=== PATIENT | female | born 1940 | race Caucasian/White ===

== ENCOUNTER 2024-12-19 10:02 | Inpatient (IN) | payer OTHER, MEDICARE ==
[~2024-12-19] VITALS: Ht 172.7 cm; Wt 114.3 kg
--- NOTE | 2024-12-19 10:15 | ED.PDOC ---
Altered Mental Status HPI Comments 84 y.o female with PMHx of COPD, HTN, Dementia, presents to the ED via EMS for an evaluation of altered mental status. EMS reports patient is coming from private residence. Home health nurse called 911 due to patient's lethargic state trying to transfer from bed to wheelchair. Family on scene reported that patient is usually up, ambulatory but noticed today she was unable to assist herself and was hard to arouse. Paramedics reported on scene constricted pupils and stated that patient became combative transferring her from wheelchair to gurney. Per EMS, family was not aware of any medication, drug or etoh ingestion, however mentioned to paramedics that they had Morphine and Lorazepam in the r efrigerator. Patient upon ED arrival is lethargic, opens her eyes to name but immediately closes them. No other information obtained as no family is present. Time Seen by MD: 10:04 Primary Care Provider: ESTELLE Mann Notes: Nurses Notes, Fertilizer Mixer Notes, Medications, Allergies Allergies: Coded Allergies: NO KNOWN ALLERGIES (Unverified , 06/22/14) Information Source: Emergency Med Personnel Mode of Arrival: EMS Severity: Other (Patient is altered and lethargic ) Timing: Hours Duration: Since onset Quality: Decreased Alertness, Change in Behavior Recent: Other History of: Dementia Associated Signs and Symptoms: Other (Patient is lethargic) Past Medical History PAST MEDICAL HISTORY: Arthritis, COPD, Dementia, HTN Surgical History: Denies all surgeries BUCKLE ATTACHING MACHINE OPERATOR History: No Pertinent BUCKLE ATTACHING MACHINE OPERATOR History Family History Family History: Unknown Social History Smoker: Non-Smoker Alcohol: Occasionally Drugs: Unknown Lives In: Home Unable to Obtain due to: Altered Mental Status Physical Exam General Appearance: No Apparent Distress, Obese, Other (lethargic, arousable) HEENT: Other (Pupils constricted, extraocular movements intact, moist mucous membranes, face symmetric) Neck: Full Range of Motion, Non-Tender, Normal Inspection, Supple Respiratory: Decreased Breath Sounds, No Accessory Muscle Use, No Respiratory Distress Cardiovascular: No Edema, No JVD, Regular Rate/Rhythm Breast Exam: Deferred Gastrointestinal: Non Tender, Soft Genitalia: Deferred Pelvic: Deferred Rectal: Deferred Extremities: Normal inspection, Normal range of motion, Non-tender, No pedal edema Neurologic: Other (Somnolent, arousable, minimally verbal, moves all extremities, localizes painful stimulus) Cerebellar Function: NOT DONE Reflexes: NOT DONE Skin: Dry, Normal Color, Warm Lymphatic: NOT DONE EKG EKG : Comments Sinus rhythm, rate 66, OR 201, normal QRS and QTC intervals, borderline left axis deviation, normal QRS, nonspecific T changes. Was a procedure done? Was a procedure done?: No Differential Diagnosis (ALOC) Differential Diagnosis: Dehydration, Hypoglycemia, Encephalopathy, Sepsis, Hypoxemia, Closed Head Injury, CVA, Mass Lesion, SAH, Drug Overdose, ETOH Intoxication, Heart Failure, Other (Pneumonia, among others) X-Ray, Labs, Meds, VS Vital Signs Date Time Temp Pulse Resp B/P (MAP) Pulse Ox O2 Delivery O2 Flow Rate FiO2 12/19/24 12:04 97.5 64 20 105/56 (72) 94 97.5 12/19/24 11:45 18 93 Nasal Cannula* 4 36 12/19/24 10:35 66 12/19/24 10:21 91 Nasal Cannula* 4 36 12/19/24 10:20 Nasal Cannula* 2 28 12/19/24 10:12 97.9 80 16 124/70 (88) 91 97.9 Lab Test 12/19/24 11:20 12/19/24 10:50 12/19/24 10:26 Range/Units Troponin I High Sensitivity 3 L 4 </=34 ng/L Plasma/Serum Blood Alcohol < 3.0 < 3.0 <10 mg/dL Urine Color Yellow Yellow Urine Clarity Clear Clear Urine pH 5.5 5.0-9.0 Urine Specific [place] 1.033 1.001-1.035 Urine Protein Trace H Negative Urine Ketones Negative Negative Urine Blood Negative Negative /uL Urine Nitrite Negative Negative Urine Bilirubin Negative Negative Urine Urobilinogen 2 H Negative mg/dL Urine Leukocyte Esterase Negative Negative /uL Urine RBC 3 0 - 4 /hpf Urine Microscopic WBC 4 0-5 /HPF Urine Squamous Epithelial Cells Few <5 /hpf Urine Bacteria Few H None Seen /hpf Urine Mucus Few None Seen Urine Glucose Normal Normal mg/dL Urine Opiates Screen Pos NEGATIVE Urine Fentanyl Screen Pos NEGATIVE Urine Barbiturates Screen Neg NEGATIVE Urine Phencyclidine Screen Neg NEGATIVE Urine Amphetamines Screen Neg NEGATIVE Urine Benzodiazepines Screen Pos NEGATIVE Urine Cocaine Screen Neg NEGATIVE Urine Cannabinoids Screen Neg NEGATIVE White Blood Count 10.0 4.4-10.8 10^3/uL Red Blood Count 4.74 4.0-5.20 10^6/uL Hemoglobin 14.3 12.2-16.2 g/dL Hematocrit 43.9 36.0-46.0 % Mean Corpuscular Volume 92.7 80.0-100.0 fL Mean Corpuscular Hemoglobin 30.1 28.0-32.0 pg Mean Corpuscular Hemoglobin Concent 32.5 32.0-36.0 g/dL Red Cell Distribution Width 16.3 H 11.8-14.3 % Platelet Count 325 140-450 10^3/uL Mean Platelet Volume 7.8 6.9-10.8 fL Neutrophils (%) (Auto) 70.7 37.0-80.0 % Lymphocytes (%) (Auto) 21.8 10.0-50.0 % Monocytes (%) (Auto) 5.8 0.0-12.0 % Eosinophils (%) (Auto) 1.3 0.0-7.0 % Basophils (%) (Auto) 0.4 0.0-2.0 % Neutrophils # (Auto) 7.1 1.6-8.6 10 ^3/uL Lymphocytes # (Auto) 2.2 0.4-5.4 10 ^3/uL Monocytes # (Auto) 0.6 0-1.3 10 ^3/uL Eosinophils # (Auto) 0.1 0-0.8 10 ^3/uL Basophils # (Auto) 0 0-0.2 10 ^3/uL Nucleated Red Blood Cells 0.0 % Sodium Level 144 136-145 mmol/L Potassium Level 4.0 3.5-5.1 mmol/L Chloride Level 108 H 98-107 mmol/L Carbon Dioxide Level 29 20-31 mmol/L Anion Gap 7 5-15 Blood Urea Nitrogen 23 9-23 mg/dL Creatinine 0.83 0.550-1.02 mg/dL Glomerular Filtration Rate Calc 70 >90 mL/min BUN/Creatinine Ratio 27.7 H 10.0-20.0 Serum Glucose 111 H 74-106 mg/dL Lactic Acid Level 0.6 0.4-2.0 mmol/L Calcium Level 9.3 8.7-10.4 mg/dL Total Bilirubin < 0.2 L 0.2-1.0 mg/dL Aspartate Amino Transferase (AST) 13 13-40 U/L Alanine Aminotransferase (ALT) 15 7-40 U/L Alkaline Phosphatase 97 46-116 U/L Ammonia < 10 L 11-32 umol/L B-Type Natriuretic Peptide 38.07 0-100 pg/mL Total Protein 7.0 5.7-8.2 g/dL Albumin 4.3 3.2-4.8 g/dL Current Medications Medications (Trade) Dose Ordered Sig/Pepito Route Start Time Stop Time Status Last Admin Naloxone HCl (Narcan) 0.4 mg ONCE ONCE IV 12/19/24 10:15 12/19/24 10:16 DC 12/19/24 11:04 Albuterol (Ventolin Medneb) 5 mg ONCE ONCE NEB 12/19/24 11:15 12/19/24 11:16 DC 12/19/24 11:45 Ipratropium [place] (Atrovent Medneb) 0.5 mg ONCE ONCE NEB 12/19/24 11:15 12/19/24 11:16 DC 12/19/24 11:45 Clindamycin Phosphate 50 ml @ 50 mls/hr ONCE ONCE IV 12/19/24 12:00 12/19/24 12:59 DC 12/19/24 13:47 Ceftriaxone Sodium 50 ml @ 100 mls/hr ONCE ONCE IV 12/19/24 12:00 12/19/24 12:39 DC 12/19/24 13:02 Methylprednisolone Sodium Succinate (Solu Medrol) 125 mg ONCE ONCE IV 12/19/24 12:15 12/19/24 12:39 DC 12/19/24 13:02 PROCEDURE(s): CXRP - CHEST PORTABLE REASON: aloc hypoxia ORDER NUMBER(s): [id number], ACCESSION NUMBER(s): [id number] CHEST RADIOGRAPH Indication: aloc hypoxia Technique: Single frontal view of the chest was obtained COMPARISON: None FINDINGS: Lines and Tubes: None Lungs: Diffuse increased interstitial prominence Pleura: No effusion. No pneumothorax. Cardiomediastinal contours: Unremarkable Bones: Unremarkable IMPRESSION: Pulmonary vascular congestion ATED BY: MARCO A KELLY MD X-Ray, Labs, Meds, VS Comment 84-year-old female with a history of COPD, hypertension, dementia, arthritis brought in by EMS from home with altered mental status and hypoxia Vitals remarkable for hypoxia with oxygen saturation 91% on 2 L nasal cannula Exam remarkable for lethargy, constricted pupils, diminished breath sounds Rhythm strip independently interpreted by me: Sinus rhythm, rate 66, no ectopy. Patient refused head CT Chest x-ray IMPRESSION: Pulmonary vascular congestion CBC, CMP, BNP, troponin , UA, alcohol level unremarkable for any abnormality of acute significance, urine drug screen positive for opiates, fentanyl and benzos Patient treated with the following in the ED: Narcan 0.4 mg IV with improvement of mental status. Albuterol 5 mg/Atrovent 0.5 mg nebulized, Solu-Medrol 125 mg IV, Rocephin 1 g IV, clindamycin 900 mg IV On re-evaluation after Narcan, patient was somnolent but more arousable. She was still unable to provide any coherent history, however was able states she was more comfortable now. Plan is to admit the patient for respiratory support and IV antibiotics Time of 1ST Reevaluation: 10:09 Reevaluation 1ST: Unchanged Time of 2ND Reevaluation: 12:10 Reevaluation 2ND: Improved Patient Education/Counseling: Other (Patient is altered ) Family Education/Counseling: No Family Present Departure 1 Departure Time of Disposition: 12:11 Impression: Primary Impression: Toxic encephalopathy Qualified Codes: G92.9 - Unspecified toxic encephalopathy Additional Impressions: Pneumonia Qualified Codes: J18.9 - Pneumonia, unspecified organism Acute hypoxic respiratory failure COPD exacerbation Disposition: 02 SHORT TERM HOSPITAL Admit to: [facility] Condition: Guarded Critical Care Note Critical Care Time?: Yes (45 min-critical care time only) Critical care comment: Critical care time including multiple bedside re-evaluations, review of lab and imaging studies, and discussion of the case with the accepting provider. Patient is high risk for respiratory and/or neurologic decompensation. Stability Stability form required: No Heart Score Heart Score: Heart Score Response (Comments) Value History N/A 0 EKG N/A 0 Age N/A 0 Risk Factors N/A 0 Troponin N/A 0 Total 0 I personally scribed for TANIA HERNANDEZ MD ([email or web address]) on 12/19/24 at 10:15. Electronically submitted by Bozena Reis ([facility]). ATNIA HERNANDEZ MD December 19, 2024 10:15
--- NOTE | 2024-12-19 10:37 | ECG ---
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
[2024-12-19 10:50] LABS: Basophils # (auto) 0 10 ^3/uL (0-0.2); Basophils % (auto) 0.4 % (0.0-2.0); Eosinophils # (auto) 0.1 10 ^3/uL (0-0.8); Eosinophils % (auto) 1.3 % (0.0-7.0); Hematocrit 43.9 % (36.0-46.0); Hemoglobin 14.3 g/dL (12.2-16.2); Lymphocytes # (auto) 2.2 10 ^3/uL (0.4-5.4); Lymphocytes % (auto) 21.8 % (10.0-50.0); Mean Corpuscular Hemoglobin 30.1 pg (28.0-32.0); Mean Corpuscular Hgb Conc. 32.5 g/dL (32.0-36.0); Mean Corpuscular Volume 92.7 fL (80.0-100.0); Monocytes # (auto) 0.6 10 ^3/uL (0-1.3); Monocytes % (auto) 5.8 % (0.0-12.0); Neutrophils # (auto) 7.1 10 ^3/uL (1.6-8.6); Neutrophils % (auto) 70.7 % (37.0-80.0); Platelet Count (auto) 325 10^3/uL (140-450); Red Blood Cells 4.74 10^6/uL (4.0-5.20); Red Cell Distribution Width 16.3 % (11.8-14.3)
[2024-12-19] MEDS: NALOXONE HCL 0.4 MG/ML VIAL IV ONE (11:04)
[2024-12-19 11:05] LABS: Urine Bacteria FEW /hpf (None Seen); Urine Blood Negative /uL (Negative); Urine Clarity Clear (Clear); Urine Color Yellow (Yellow); Urine Mucus FEW (None Seen); Urine Protein, UAD TRACE (Negative); Urine Specific Gravity 1.033 (1.001-1.035); Urine Squamous Epithelial Cell FEW /hpf (<5); Urine Urobilinogen 2 mg/dL (Negative); Urine WBC 4 /HPF (0-5); Urine pH 5.5 (5.0-9.0)
[2024-12-19 11:14] LABS: Alanine Aminotransferase 15 U/L (7-40); Albumin 4.3 g/dL (3.2-4.8); Alkaline Phosphatase 97 U/L (46-116); Anion Gap 7 (5-15); BUN/Creatinine Ratio 27.7 (10.0-20.0); Calcium 9.3 mg/dL (8.7-10.4); Carbon Dioxide 29 mmol/L (20-31); Sodium 144 mmol/L (136-145)
[2024-12-19 11:15] LABS: Aspartate Aminotransferase 13 U/L (13-40); Bilirubin, Total < 0.2 mg/dL (0.2-1.0); Blood Alcohol < 3.0 mg/dL (<10); Blood Urea Nitrogen 23 mg/dL (9-23); Chloride 108 mmol/L (98-107); Glucose 111 mg/dL (74-106)
[2024-12-19 11:16] LABS: Amphetamine Screen, Urine Neg (NEGATIVE); Opiate Scree,Urine Pos (NEGATIVE)
[2024-12-19 11:17] LABS: Barbiturate Scree,Urine Neg (NEGATIVE); Benzodiazephine Screen, Urine Pos (NEGATIVE); Cannabinoid Screen, Urine Neg (NEGATIVE); Cocaine Screen, Urine Neg (NEGATIVE); Phencyclidine Screen, Urine Neg (NEGATIVE)
[2024-12-19] MEDS: ALBUTEROL SULF 2.5 MG/0.5ML(0.5%) NEB SOLN NEB ONE (11:45)
[2024-12-19] MEDS: IPRATROPIUM BROM 0.5 MG/2.5ML INH SOL NEB ONE (11:45)
--- NOTE | 2024-12-19 12:07 | DVH ---
CHEST RADIOGRAPH Indication: aloc hypoxia Technique: Single frontal view of the chest was obtained COMPARISON: None FINDINGS: Lines and Tubes: None Lungs: Diffuse increased interstitial prominence Pleura: No effusion. No pneumothorax. Cardiomediastinal contours: Unremarkable Bones: Unremarkable IMPRESSION: Pulmonary vascular congestion
[2024-12-19] MEDS: methylPREDNISolone SOD SUCC 125 MG/2 ML VL IV ONE (13:02)
[2024-12-19] MEDS: cefTRIAXone 1GM/50ML D5W 50 ML IV ONE (13:02)
[2024-12-19] MEDS: CLINDAMYCIN 900MG IV 50 ML IV ONE (13:47)
--- NOTE | 2024-12-19 13:54 | DVH ---
CLINICAL INFORMATION: Acute loss of consciousness. TECHNIQUE: Axial imaging was obtained through the brain without contrast. Coronal and sagittal reform atted images were obtained, reviewed, and stored. Images were reviewed in brain and bone windows. Al l CT scans at this medical facility are performed using dose modulation techniques as appropriate to a performed exam including the following: Automated exposure control was utilized; adjustment of the MA and/or KV according to patient size; and use of iterative reconstruction technique. CTDIvol = 66.7 8 mGy DLP = 1447.67 mGy-cm COMPARISON: None FINDINGS: There is no acute intracranial hemorrhage. No mass effect or midline shift. The ventricles and sulci are within normal limits in size for age. Basal cisterns are patent. The calvarium is unre markable. Paranasal sinuses and mastoid air cells are clear. IMPRESSION: No CT evidence of acute intracranial abnormality.
[2024-12-19] MEDS ORDERED: hydrALAZINE HCL 20 MG/ML VL IV PRN (16:15)
[2024-12-19] MEDS ORDERED: MORPHINE SULFATE INJ 2 MG/ml SYRG IV PRN (16:15)
[2024-12-19] MEDS ORDERED: DOCUSATE SOD 100 MG CAP PO PRN (16:15)
[2024-12-19] MEDS ORDERED: NITROGLYCERIN 0.4 MG SL TAB SL PRN (16:15)
[2024-12-19] MEDS ORDERED: ONDANSETRON HCL 4 MG/2 ML VIAL IV PRN (16:15)
[2024-12-19] MEDS ORDERED: IPRATROPIUM BROM 0.5 MG/2.5ML INH SOL NEB PRN (16:15)
[2024-12-19] MEDS ORDERED: ALBUTEROL SULF 2.5 MG/0.5ML(0.5%) NEB SOLN NEB PRN (16:15)
--- NOTE | 2024-12-19 16:17 | DVHHP2 ---
History of Present Illness Reason for Visit: Altered level of consciousness History of Present Illness The patient is a 84-year-old female with past medical history of dementia, arthritis, COPD, and hypertension who presented to [facility] ED for evaluation of altered mental status. As reported by EMS, home health staff called 911 due to patient's lethargic state, altered, with generalized weakness, getting worse. Patient was seen and evaluated in the ED, laboratory data shows WBC 10.0, platelets 325, sodium 144, potassium 4.0, BUN 23, creatinine 0.83, gl ucose 111, ammonia < 10, troponin 4, blood pressure 105/56, heart rate 64, temperature 97.5� F, O2 saturation 94% on oxygen. Urine toxicology positive for fentanyl, benzo-diazepam, and opiate. Chest x-ray revealing pulmonary vascular congestion, pneumonia. Patient was started on IV antibiotic regimen azithromycin, please see medication orders section in the computer. On my assessment, patient denied chest pain, no headache, no dizziness, no diaphoresis, currently on oxygen, no nausea, no vomiting, no fever, no chills. Patient was admitted for further evaluation and medical management. Past Medical History Arthritis, COPD, Dementia, HTN Past Surgical History Denies all surgeries Family History Reviewed, noncontributory to the management of this case. Past Social History The patient lives at home, denies smoking, alcohol or illicit drugs abuse. Review of Systems Constitutional: Yes: Weakness; No: Fever, Chills, Sweats, Malaise, Other Eyes: No: Pain, Vision change, Conjunctivae inflammation, Eyelid inflammation, Other, Redness ENT: No: Ear pain, Ear discharge, Nose pain, Nose discharge, Nose congestion, Mouth pain, Mouth swelling, Throat pain, Throat swelling, Other Respiratory: No: Cough, Dry, Shortness of breath, SOB with excertion, Wheezing, Hemoptysis, Pleuritic Pain, Sputum, Wheezing, Other Cardiovascular: No: Chest Pain, Palpitations, Orthopnea, Paroxysmal Noc. Dyspnea, Edema, Lt Headedness, Other Gastrointestinal: No: Nausea, Vomiting, Abdominal Pain, Diarrhea, Constipation, Melena, Hematochezia, Other Genitourinary: No Dysuria, No Frequency, No Incontinence, No Hematuria, No Retention; Other (Irwin catheter in place) Musculoskeletal: No: other, neck pain, shoulder pain, arm pain, back pain, hand pain, leg pain, foot pain Skin: No: Rash, Lesions, Jaundice, Bruising, Other Neurological: Confusion; No: Weakness, Numbness, Incoordination, Change in speech, Seizures, Other Allergies: Coded Allergies: NO KNOWN ALLERGIES (Unverified , 06/22/14) Exam Vital Signs Vital Signs Date Time Temp Pulse Resp B/P (MAP) Pulse Ox O2 Delivery O2 Flow Rate FiO2 12/19/24 12:04 97.5 64 20 105/56 (72) 94 97.5 12/19/24 11:45 Nasal Cannula* 4 36 General Appearance: Alert, Cooperative, No acute distress, Other (Oriented x1) HEENT: Atraumatic, PERRLA, EOMI, Mucous membr. moist/pink Respiratory: Normal air movement, Other (Diminished breath sounds) Cardiovascular: Regular rate, Normal S1, Normal S2, No murmurs Abdominal: Normal bowel sounds, Soft, No tenderness, No hepatospenomegaly, No masses Extremities: No clubbing, No cyanosis, No edema, Normal pulses, No tenderne ss/swelling Skin: No rashes, No breakdown, No significant lesion Neuro: Normal speech, Normal tone, Sensation intact, Cranial nerves 3-12 NL, Reflexes 2+, Other (Generalized weakness) Psych/Mental Status: Mental status NL, Mood NL Labs/Xrays Labs Test 12/19/24 11:20 12/19/24 10:50 12/19/24 10:26 Range/Units Troponin I High Sensitivity 3 L </=34 ng/L Plasma/Serum Blood Alcohol < 3.0 <10 mg/dL Urine Color Yellow Yellow Urine Clarity Clear Clear Urine pH 5.5 5.0-9.0 Urine Specific [place] 1.033 1.001-1.035 Urine Protein Trace H Negative Urine Ketones Negative Negative Urine Blood Negative Negative /uL Urine Nitrite Negative Negative Urine Bilirubin Negative Negative Urine Urobilinogen 2 H Negative mg/dL Urine Leukocyte Esterase Negative Negative /uL Urine RBC 3 0 - 4 /hpf Urine Microscopic WBC 4 0-5 /HPF Urine Squamous Epithelial Cells Few <5 /hpf Urine Bacteria Few H None Seen /hpf Urine Mucus Few None Seen Urine Glucose Normal Normal mg/dL Urine Opiates Screen Pos NEGATIVE Urine Fentanyl Screen Pos NEGATIVE Urine Barbiturates Screen Neg NEGATIVE Urine Phencyclidine Screen Neg NEGATIVE Urine Amphetamines Screen Neg NEGATIVE Urine Benzodiazepines Screen Pos NEGATIVE Urine Cocaine Screen Neg NEGATIVE Urine Cannabinoids Screen Neg NEGATIVE White Blood Count 10.0 4.4-10.8 10^3/uL Red Blood Count 4.74 4.0-5.20 10^6/uL Hemoglobin 14.3 12.2-16.2 g/dL Hematocrit 43.9 36.0-46.0 % Mean Corpuscular Volume 92.7 80.0-100.0 fL Mean Corpuscular Hemoglobin 30.1 28.0-32.0 pg Mean Corpuscular Hemoglobin Concent 32.5 32.0-36.0 g/dL Red Cell Distribution Width 16.3 H 11.8-14.3 % Platelet Count 325 140-450 10^3/uL Mean Platelet Volume 7.8 6.9-10.8 fL Neutrophils (%) (Auto) 70.7 37.0-80.0 % Lymphocytes (%) (Auto) 21.8 10.0-50.0 % Monocytes (%) (Auto) 5.8 0.0-12.0 % Eosinophils (%) (Auto) 1.3 0.0-7.0 % Basophils (%) (Auto) 0.4 0.0-2.0 % Neutrophils # (Auto) 7.1 1.6-8.6 10 ^3/uL Lymphocytes # (Auto) 2.2 0.4-5.4 10 ^3/uL Monocytes # (Auto) 0.6 0-1.3 10 ^3/uL Eosinophils # (Auto) 0.1 0-0.8 10 ^3/uL Basophils # (Auto) 0 0-0.2 10 ^3/uL Nucleated Red Blood Cells 0.0 % Sodium Level 144 136-145 mmol/L Potassium Level 4.0 3.5-5.1 mmol/L Chloride Level 108 H 98-107 mmol/L Carbon Dioxide Level 29 20-31 mmol/L Anion Gap 7 5-15 Blood Urea Nitrogen 23 9-23 mg/dL Creatinine 0.83 0.550-1.02 mg/dL Glomerular Filtration Rate Calc 70 >90 mL/min BUN/Creatinine Ratio 27.7 H 10.0-20.0 Serum Glucose 111 H 74-106 mg/dL Lactic Acid Level 0.6 0.4-2.0 mmol/L Calcium Level 9.3 8.7-10.4 mg/dL Total Bilirubin < 0.2 L 0.2-1.0 mg/dL Aspartate Amino Transferase (AST) 13 13-40 U/L Alanine Aminotransferase (ALT) 15 7-40 U/L Alkaline Phosphatase 97 46-116 U/L Ammonia < 10 L 11-32 umol/L B-Type Natriuretic Peptide 38.07 0-100 pg/mL Total Protein 7.0 5.7-8.2 g/dL Albumin 4.3 3.2-4.8 g/dL PATIENT: NADIA VALLEJO ACCT: [id number] UNIT: [id number] : 1940 LOC: ER ROOM / BED: / AGE / SEX: 84 / F ADM STATUS: REG ER SERVICE 1008 ORDERING PHYSICIAN: TANIA HERNANDEZ MD PROCEDURE(s): CXRP - CHEST PORTABLE REASON: aloc hypoxia ORDER NUMBER(s): [id number], ACCESSION NUMBER(s): [id number] CHEST RADIOGRAPH Indication: aloc hypoxia Technique: Single frontal view of the chest was obtained COMPARISON: None FINDINGS: Lines and Tubes: None Lungs: Diffuse increased interstitial prominence Pleura: No effusion. No pneumothorax. Cardiomediastinal contours: Unremarkable Bones: Unremarkable IMPRESSION: Pulmonary vascular congestion ORDERING PHYSICIAN: TANIA HERNANDEZ MD PROCEDURE(s): HWOCT - HEAD WITHOUT CONTRAST REASON: aloc ORDER NUMBER(s): [id number], ACCESSION NUMBER(s): [id number] CLINICAL INFORMATION: Acute loss of consciousness. TECHNIQUE: Axial imaging was obtained through the brain without contrast. Coronal and sagittal reformatted images were obtained, reviewed, and stored. Images were reviewed in brain and bone windows. All CT scans at this medical facility are performed using dose modulation techniques as appropriate to a per formed exam including the following: Automated exposure control was utilized; adjustment of the MA and/or KV according to patient size; and use of iterative reconstruction technique. CTDIvol = 66.78 mGy DLP = 1447.67 mGy-cm COMPARISON: None FINDINGS: There is no acute intracranial hemorrhage. No mass effect or midline shift. The ventricles and sulci are within normal limits in size for age. Basal cisterns are patent. The calvarium is unremarkable. Paranasal sinuses and mastoid air cells are clear. IMPRESSION: No CT evidence of acute intracranial abnormality. Assessment/Plan Assessment/Plan Toxic encephalopathy Unspecified toxic encephalopathy Pneumonia, unspecified organism Acute hypoxic respiratory failure COPD with acute exacerbation Plan 1. Admit to telemetry unit 2. Breathing treatment 3. Pain control management 4. IV antibiotic management 5. Management of fluids and electrolytes 6. Consultation for hospitalist 7. Diagnostic test chest x-ray 8. DVT prophylaxis on SCDs 9. Repeat labs CBC, CMP in a.m. 10. Home medication reviewed and reconciled 11. Continue with current medical management 12. Treatment plan discussed with patient and RN. Patient verbalized understanding. Plan discussed with: Patient, Other (RN) My Orders Orders - DOUGLAS ZENG DNP Procedure Category Date Status Time Trazodone Hcl PHA 12/19/24 Verified (Desyrel) 22:00 Amlodipine Tablet PHA 12/20/24 Verified (Norvasc Tablet) 10:00 Hydralazine Injection PHA 12/19/24 Verified (Apresoline Inject 16:15 Methylprednisolone PHA 12/19/24 Verified Sod Succ (Solu Medrol 22:00 Famotidine Injection PHA 12/19/24 Verified (Pepcid Injection) 22:00 Azithromycin 500mg/ PHA 12/20/24 Verified 250ml (Zithromax 50 10:00 Albuterol Medneb PHA 12/19/24 Verified (Ventolin Medneb) 16:15 Ipratropium Medneb PHA 12/19/24 Verified (Atrovent Medneb) 16:15 Admit ADMIT 12/19/24 Verified 16:10 Allergies VENKATESH 12/19/24 Verified 16:10 Code Status CODE 12/19/24 Verified 16:10 Oxygen Per Hour RT 12/19/24 Verified 16:10 Hydrocodone-Acet PHA 12/19/24 Verified 5/325mg Tab (Walker 16:15 Ondansetron Hcl PHA 12/19/24 Verified (Zofran) 16:15 Docusate Sodium PHA 12/19/24 Verified Capsule (Colace 16:15 Fall Risk Precautions V[facility]ATES[facility] 12/19/[address] 16:10 Complete Blood Count LAB 12/20/24 Verified 04:00 Comprehensive LAB 12/20/24 Verified Metabolic Panel 04:00 Cardiac DIET 12/19/24 Verified Diet-2gna,Lofat,Lochol Dinner Condition: Serious [facility] 12/19/24 Verified 16:10 Acetaminophen Tablet [facility] WITH [facility] 12/19/24 Verified (Tylenol Tablet) 16:15 Sequential [facility] 12/19/24 Verified Compression Device Nitroglycerin PHA 12/19/24 Verified Sublingual (Ntrostat 16:15 Morphine Sulfate [facility] 12/19/24 Verified Injection 16:15 Notify Md Of Changes [facility] 12/19/24 Verified From Base 16:10 Oven Heater For [facility] 12/19/24 Verified 24 Hours 16:10 Emergency Dysrhythmia [facility] 12/19/24 Verified Protocol 16:10 Rhythm Strips Once [facility] 12/19/24 Verified Every Shift 16:10 Oxygen By Nasal 12/19/24 Verified Cannula 16:10 Problem List: (1) Toxic encephalopathy (2) COPD with acute exacerbation (3) Acute hypoxic respiratory failure (4) Pneumonia, unspecified organism (5) Unspecified toxic encephalopathy Date of Service: December 19, 2024 Billing Provider: DOUGLAS ZENG DNP Common Visit Codes: 28295-MTPMQWT INP/OBS CARE (HIGH) DOUGLAS ZENG DNP December 19, 2024 16:17
[2024-12-19 16:25] VITALS: O2SAT 94
[2024-12-19 16:28] VITALS: BP 105/56; PULSE 64; RESP 20; TEMP 97.5; O2SAT 94
[2024-12-19 19:08] VITALS: O2SAT 94
[2024-12-19 19:50] VITALS: PULSE 80; RESP 16; O2SAT 90
[2024-12-19] MEDS: SODIUM CHLOR 0.9% PF (SALINE LOCK) 10ML VIAL/SYR IV SCH (22:12)
[2024-12-19] MEDS: FAMOTIDINE (10MG/ML) 2ML VL IV SCH (22:22)
[2024-12-19] MEDS: traZODone HCL 50 MG TAB PO SCH (22:23)
[2024-12-19] MEDS: methylPREDNISolone SOD SUCC 40 MG/ML VL IV SCH (22:23)
[2024-12-19 22:57] VITALS: BP 129/51; PULSE 64; RESP 18; TEMP 97.8; O2SAT 95
[2024-12-19] MEDS: ACETAMINOPHEN 325 MG TAB PO PRN (23:27)
[2024-12-19 23:31] VITALS: PULSE 64; RESP 18; O2SAT 95
[2024-12-20] VITALS (10 sets, daily range): BP systolic 109–137; BP diastolic 39–63; PULSE 61–72; RESP 18–95; TEMP 97.4–98; O2SAT 0–97
[2024-12-20 07:47] LABS: Basophils # (auto) 0 10 ^3/uL (0-0.2); Basophils % (auto) 0.1 % (0.0-2.0); Eosinophils # (auto) 0 10 ^3/uL (0-0.8); Hematocrit 43.6 % (36.0-46.0); Hemoglobin 14.7 g/dL (12.2-16.2); Lymphocytes % (auto) 13.9 % (10.0-50.0); Mean Corpuscular Hemoglobin 31.2 pg (28.0-32.0); Mean Corpuscular Hgb Conc. 33.7 g/dL (32.0-36.0); Mean Corpuscular Volume 92.6 fL (80.0-100.0); Monocytes # (auto) 0.1 10 ^3/uL (0-1.3); Monocytes % (auto) 1.9 % (0.0-12.0); Neutrophils # (auto) 5.8 10 ^3/uL (1.6-8.6); Neutrophils % (auto) 84.1 % (37.0-80.0); Platelet Count (auto) 284 10^3/uL (140-450); Red Blood Cells 4.71 10^6/uL (4.0-5.20); Red Cell Distribution Width 15.5 % (11.8-14.3); White Blood Cell 6.9 10^3/uL (4.4-10.8)
[2024-12-20 08:03] LABS: Alanine Aminotransferase 16 U/L (7-40); Alkaline Phosphatase 90 U/L (46-116); Anion Gap 6 (5-15); BUN/Creatinine Ratio 27.3 (10.0-20.0); Blood Urea Nitrogen 18 mg/dL (9-23); Calcium 9.4 mg/dL (8.7-10.4); Carbon Dioxide 26 mmol/L (20-31); Sodium 140 mmol/L (136-145)
[2024-12-20 08:04] LABS: Albumin 4.1 g/dL (3.2-4.8)
[2024-12-20 08:05] LABS: Aspartate Aminotransferase 12 U/L (13-40); Bilirubin, Total < 0.2 mg/dL (0.2-1.0); Chloride 108 mmol/L (98-107); Glucose 124 mg/dL (74-106)
[2024-12-20] MEDS: AZITHROMYCIN 500MG/ 250ML 250 ML IV SCH (10:00)
[2024-12-20] MEDS: amLODIPine BESYLATE 5 MG TAB PO SCH (11:30)
--- NOTE | 2024-12-20 13:29 | DVHPN2 ---
Reviewed: Care Plan, H&P, Labs, Medications, Previous Orders, Radiology Changes from previous H/P or p: No Changes Eyes: No Pain, No Vision change, No Conjunctivae inflammation, No Eyelid inflammation, No Other, No Redness ENT: No Ear pain, No Ear discharge, No Nose pain, No Nose discharge, No Nose congestion, No Mouth pain, No Mouth swelling, No Throat pain, No Throat swelling, No Other Cardiovascular: No Chest Pain, No Palpitations, No Orthopnea, No Paroxysmal Noc. Dyspnea, No Edema, No Lt Headedness, No Other Respiratory: No Cough, No Dry, No Shortness of breath, No SOB with excertion, No Wheezing, No Hemoptysis, No Pleuritic Pain, No Sputum, No Other Gastrointestinal: No Nausea, No Vomiting, No Abdominal Pain, No Diarrhea, No Constipation, No Melena, No Hematochezia, No Other Genitourinary: No Dysuria, No Frequency, No Incontinence, No Hematuria, No Retention; Other (Irwin catheter in place) Musculoskeletal: No other, No neck pain, No shoulder pain, No arm pain, No back pain, No hand pain, No leg pain, No foot pain Skin: No Rash, No Lesions, No Jaundice, No Bruising, No Other Objective Vitals Vital Signs Date Time Temp Pulse Resp B/P (MAP) Pulse Ox O2 Delivery O2 Flow Rate FiO2 12/20/24 09:00 97.4 67 18 137/63 (87) 96 97.4 12/20/24 07:00 Nasal Cannula 2.0 12/20/24 07:00 28 Intake/Output Intake and Output 12/20/24 07:00 Intake Total 500 ml Output Total 400 ml Balance 100 ml Intake Oral 350 ml IV Total 50 ml Other 100 ml Output Urine Total 400 ml Medications Current Medications Medications Dose Ordered Sig/Pepito Route Start Time Stop Time Status Last Admin Dose Admin Trazodone HCl 50 mg HS PO 12/19/24 22:00 12/19/24 22:23 50 MG Amlodipine Besylate 5 mg DAILY PO 12/20/24 10:00 Hydralazine HCl 10 mg Q6HP PRN IV 12/19/24 16:15 Methylprednisolone Sodium Succinate 40 mg Q8HR IV 12/19/24 22:00 12/19/24 22:23 40 MG Famotidine 20 mg Q12HR IV 12/19/24 22:00 5/5/25 22:22 20 MG Azithromycin 250 ml @ 125 mls/hr DAILY IV 12/20/24 10:00 Albuterol 2.5 mg Q4HPRN PRN NEB 12/19/24 16:15 Ipratropium [place] 0.5 mg Q4HPRN PRN NEB 12/19/24 16:15 Sodium Chloride 10 ml Q8HR IV 12/19/24 22:00 12/19/24 22:12 10 ML Acetaminophen/ Hydrocodone Bitart 1 tab Q4HP PRN PO 12/19/24 16:15 Ondansetron HCl 4 mg Q4HP PRN IV 12/19/24 16:15 Docusate Sodium 100 mg BIDPRN PRN PO 12/19/24 16:15 Acetaminophen 650 mg Q6HP PRN PO 12/19/24 16:15 12/19/24 23:27 650 MG Nitroglycerin 0.4 mg Q5MINP PRN SL 12/19/24 16:15 Morphine Sulfate 2 mg Q30M PRN IV 12/19/24 16:15 Melatonin 10 mg HS PRN PO 12/20/24 01:00 Laboratory Results Laboratory Tests 12/20/24 04:56 12/20/24 06:56 Chemistry Test 12/20/24 04:56 Albumin 4.1 g/dL (3.2-4.8) Calcium Level 9.4 mg/dL (8.7-10.4) Total Protein 7.0 g/dL (5.7-8.2) LFT Test 12/20/24 04:56 Alanine Aminotransferase (ALT) 16 U/L (7-40) Alkaline Phosphatase 90 U/L (46-116) Aspartate Amino Transferase (AST) 12 U/L (13-40) L Total Bilirubin < 0.2 mg/dL (0.2-1.0) L Urinalysis Test 12/19/24 10:50 Urine Color Yellow (Yellow) Urine Clarity Clear (Clear) Urine pH 5.5 (5.0-9.0) Urine Specific [place] 1.033 (1.001-1.035) Urine Protein Trace (Negative) H Urine Ketones Negative (Negative) Urine Blood Negative /uL (Negative) Urine Nitrite Negative (Negative) Urine Bilirubin Negative (Negative) Urine Urobilinogen 2 mg/dL (Negative) H Urine Leukocyte Esterase Negative /uL (Negative) Urine RBC 3 /hpf (0 - 4) Urine Microscopic WBC 4 /HPF (0-5) Urine Squamous Epithelial Cells Few /hpf (<5) Urine Bacteria Few /hpf (None Seen) H Urine Mucus Few (None Seen) Urine Glucose Normal mg/dL (Normal) Microbiology Microbiology Date/Time Source Procedure Growth Status 12/19/24 10:26 Blood Blood Culture - Preliminary NO GROWTH AFTER 24 HOURS OF INCUBATION. Resulted Labs and/or images reviewed: Labs reviewed by me, Image(s) reviewed by me Assessment/Plan Assessment/Plan Overdose on opiates fentanyl and benzodiazepine Acute Toxic encephalopathy Community-acquired pneumonia azithromycin Acute hypoxic respiratory failure Acute COPD exacerbation: Albuterol Atrovent Solu-Medrol Hypertension Dementia Arthritis CT head negative Chest x-ray negative Patient is hospice revoked Time spent 65 mts Advanced care planning time 20 minutes Plan discussed with: Patient Date of Service: December 20, 2024 Billing Provider: DOMINIQUE BANEGAS MD Common Visit Codes: [id number] CARE 30-74 MIN DOMINIQUE BANEGAS MD December 20, 2024 13:29
[2024-12-20] MEDS: HYDROcodone-ACET 5/325MG TAB PO PRN (18:42)
[2024-12-21] VITALS (10 sets, daily range): BP systolic 131–150; BP diastolic 58–66; PULSE 62–75; RESP 18–20; TEMP 97.6–98.8; O2SAT 62–96
--- NOTE | 2024-12-21 08:29 | DVHPN2 ---
Reviewed: Care Plan, H&P, Labs, Medications, Previous Orders, Radiology Changes from previous H/P or p: No Changes Eyes: No Pain, No Vision change, No Conjunctivae inflammation, No Eyelid inflammation, No Other, No Redness ENT: No Ear pain, No Ear discharge, No Nose pain, No Nose discharge, No Nose congestion, No Mouth pain, No Mouth swelling, No Throat pain, No Throat swelling, No Other Cardiovascular: No Chest Pain, No Palpitations, No Orthopnea, No Paroxysmal Noc. Dyspnea, No Edema, No Lt Headedness, No Other Respiratory: No Cough, No Dry, No Shortness of breath, No SOB with excertion, No Wheezing, No Hemoptysis, No Pleuritic Pain, No Sputum, No Other Gastrointestinal: No Nausea, No Vomiting, No Abdominal Pain, No Diarrhea, No Constipation, No Melena, No Hematochezia, No Other Genitourinary: No Dysuria, No Frequency, No Incontinence, No Hematuria, No Retention; Other (Irwin catheter in place) Musculoskeletal: No other, No neck pain, No shoulder pain, No arm pain, No back pain, No hand pain, No leg pain, No foot pain Skin: No Rash, No Lesions, No Jaundice, No Bruising, No Other Objective Vitals Vital Signs Date Time Temp Pulse Resp B/P (MAP) Pulse Ox O2 Delivery O2 Flow Rate FiO2 12/21/24 06:17 96 Nasal Cannula 2.0 12/21/24 06:17 28 12/21/24 05:00 98.2 75 144/66 (92) 98.2 12/21/24 01:00 20 Intake/Output Intake and Output 12/21/24 07:00 Intake Total 2280 ml Output Total 2450 ml Balance -170 ml Intake Oral 2280 ml Output Urine Total 2450 ml Medications Current Medications Medications Dose Ordered Sig/Pepito Route Start Time Stop Time Status Last Admin Dose Admin Trazodone HCl 50 mg HS PO 12/19/24 22:00 12/20/24 21:31 50 MG Amlodipine Besylate 5 mg DAILY PO 12/20/24 10:00 12/20/24 11:30 5 MG Hydralazine HCl 10 mg Q6HP PRN IV 12/19/24 16:15 Methylprednisolone Sodium Succinate 40 mg Q8HR IV 12/19/24 22:00 12/21/24 05:45 40 MG Famotidine 20 mg Q12HR IV 12/19/24 22:00 12/20/24 21:19 20 MG Azithromycin 250 ml @ 125 mls/hr DAILY IV 12/20/24 10:00 12/20/24 17:13 125 MLS/HR Albuterol 2.5 mg Q4HPRN PRN NEB 12/19/24 16:15 Ipratropium [place] 0.5 mg Q4HPRN PRN NEB 12/19/24 16:15 Sodium Chloride 10 ml Q8HR IV 12/19/24 22:00 12/21/24 05:44 10 ML Acetaminophen/ Hydrocodone Bitart 1 tab Q4HP PRN PO 12/19/24 16:15 12/20/24 18:42 1 TAB Ondansetron HCl 4 mg Q4HP PRN IV 12/19/24 16:15 Docusate Sodium 100 mg BIDPRN PRN PO 12/19/24 16:15 Acetaminophen 650 mg Q6HP PRN PO 12/19/24 16:15 12/21/24 04:52 650 MG Nitroglycerin 0.4 mg Q5MINP PRN SL 12/19/24 16:15 Morphine Sulfate 2 mg Q30M PRN IV 12/19/24 16:15 Melatonin 10 mg HS PRN PO 12/20/24 01:00 Laboratory Results Laboratory Tests 12/20/24 04:56 12/20/24 06:56 Urinalysis Test 12/19/24 10:50 Urine Color Yellow (Yellow) Urine Clarity Clear (Clear) Urine pH 5.5 (5.0-9.0) Urine Specific [place] 1.033 (1.001-1.035) Urine Protein Trace (Negative) H Urine Ketones Negative (Negative) Urine Blood Negative /uL (Negative) Urine Nitrite Negative (Negative) Urine Bilirubin Negative (Negative) Urine Urobilinogen 2 mg/dL (Negative) H Urine Leukocyte Esterase Negative /uL (Negative) Urine RBC 3 /hpf (0 - 4) Urine Microscopic WBC 4 /HPF (0-5) Urine Squamous Epithelial Cells Few /hpf (<5) Urine Bacteria Few /hpf (None Seen) H Urine Mucus Few (None Seen) Urine Glucose Normal mg/dL (Normal) Microbiology Microbiology Date/Time Source Procedure Growth Status 12/19/24 10:26 Blood Blood Culture - Preliminary NO GROWTH AFTER 24 HOURS OF INCUBATION. Resulted Labs and/or images reviewed: Labs reviewed by me, Image(s) reviewed by me Assessment/Plan Assessment/Plan Overdose on opiates fentanyl and benzodiazepine, tele psych consult, social service consult Acute Toxic encephalopathy resolving Community-acquired pneumonia azithromycin Acute hypoxic respiratory failure Acute COPD exacerbation: Albuterol Atrovent Solu-Medrol Hypertension Dementia Arthritis CT head negative Chest x-ray negative Patient is hospice revoked Time spent 55 mts Plan discussed with: Patient Date of Service: December 21, 2024 Billing Provider: DOMINIQUE BANEGAS MD Common Visit Codes: [id number] INP/OBS CARE(HIGH) DOMINIQUE BANEGAS MD December 21, 2024 08:29
[2024-12-22] VITALS (7 sets, daily range): BP systolic 134–147; BP diastolic 58–79; PULSE 58–69; RESP 16–20; TEMP 98–98.3; O2SAT 95–97
[2024-12-22] MEDS: MELATONIN 5 MG TAB PO PRN (01:34)
--- NOTE | 2024-12-22 09:39 | DVHPN2 ---
Reviewed: Care Plan, H&P, Labs, Medications, Previous Orders, Radiology Changes from previous H/P or p: No Changes Eyes: No Pain, No Vision change, No Conjunctivae inflammation, No Eyelid inflammation, No Other, No Redness ENT: No Ear pain, No Ear discharge, No Nose pain, No Nose discharge, No Nose congestion, No Mouth pain, No Mouth swelling, No Throat pain, No Throat swelling, No Other Cardiovascular: No Chest Pain, No Palpitations, No Orthopnea, No Paroxysmal Noc. Dyspnea, No Edema, No Lt Headedness, No Other Respiratory: No Cough, No Dry, No Shortness of breath, No SOB with excertion, No Wheezing, No Hemoptysis, No Pleuritic Pain, No Sputum, No Other Gastrointestinal: No Nausea, No Vomiting, No Abdominal Pain, No Diarrhea, No Constipation, No Melena, No Hematochezia, No Other Genitourinary: No Dysuria, No Frequency, No Incontinence, No Hematuria, No Retention; Other (Irwin catheter in place) Musculoskeletal: No other, No neck pain, No shoulder pain, No arm pain, No back pain, No hand pain, No leg pain, No foot pain Skin: No Rash, No Lesions, No Jaundice, No Bruising, No Other Objective Vitals Vital Signs Date Time Temp Pulse Resp B/P (MAP) Pulse Ox O2 Delivery O2 Flow Rate FiO2 12/22/24 08:00 Nasal Cannula* 2 28 12/22/24 05:00 98.3 69 20 140/62 (88) 95 98.3 Intake/Output Intake and Output 12/22/24 07:00 Intake Total 3080 ml Output Total 6850 ml Balance -3770 ml Intake Oral 2830 ml IV Total 250 ml Output Urine Total 6850 ml Medications Current Medications Medications Dose Ordered Sig/Pepito Route Start Time Stop Time Status Last Admin Dose Admin Trazodone HCl 50 mg HS PO 12/19/24 22:00 12/21/24 21:14 50 MG Amlodipine Besylate 5 mg DAILY PO 12/20/24 10:00 12/21/24 11:24 5 MG Hydralazine HCl 10 mg Q6HP PRN IV 12/19/24 16:15 Methylprednisolone Sodium Succinate 40 mg Q8HR IV 12/19/24 22:00 12/22/24 05:54 40 MG Famotidine 20 mg Q12HR IV 12/19/24 22:00 12/21/24 21:15 20 MG Azithromycin 250 ml @ 125 mls/hr DAILY IV 12/20/24 10:00 12/21/24 11:16 125 MLS/HR Albuterol 2.5 mg Q4HPRN PRN NEB 12/19/24 16:15 Ipratropium [place] 0.5 mg Q4HPRN PRN NEB 12/19/24 16:15 Sodium Chloride 10 ml Q8HR IV 12/19/24 22:00 12/22/24 05:54 10 ML Acetaminophen/ Hydrocodone Bitart 1 tab Q4HP PRN PO 12/19/24 16:15 12/20/24 18:42 1 TAB Ondansetron HCl 4 mg Q4HP PRN IV 12/19/24 16:15 Docusate Sodium 100 mg BIDPRN PRN PO 12/19/24 16:15 Acetaminophen 650 mg Q6HP PRN PO 12/19/24 16:15 12/21/24 22:24 650 MG Nitroglycerin 0.4 mg Q5MINP PRN SL 12/19/24 16:15 Morphine Sulfate 2 mg Q30M PRN IV 12/19/24 16:15 Melatonin 10 mg HS PRN PO 12/20/24 01:00 12/22/24 01:34 10 MG Laboratory Results Laboratory Tests 12/20/24 04:56 12/20/24 06:56 Urinalysis Test 12/19/24 10:50 Urine Color Yellow (Yellow) Urine Clarity Clear (Clear) Urine pH 5.5 (5.0-9.0) Urine Specific [place] 1.033 (1.001-1.035) Urine Protein Trace (Negative) H Urine Ketones Negative (Negative) Urine Blood Negative /uL (Negative) Urine Nitrite Negative (Negative) Urine Bilirubin Negative (Negative) Urine Urobilinogen 2 mg/dL (Negative) H Urine Leukocyte Esterase Negative /uL (Negative) Urine RBC 3 /hpf (0 - 4) Urine Microscopic WBC 4 /HPF (0-5) Urine Squamous Epithelial Cells Few /hpf (<5) Urine Bacteria Few /hpf (None Seen) H Urine Mucus Few (None Seen) Urine Glucose Normal mg/dL (Normal) Microbiology Microbiology Date/Time Source Procedure Growth Status 12/19/24 10:26 Blood Blood Culture - Preliminary NO GROWTH AFTER 48 HOURS OF INCUBATION. Resulted Labs and/or images reviewed: Labs reviewed by me, Image(s) reviewed by me Assessment/Plan Assessment/Plan Accidental Overdose on opiates fentanyl and benzodiazepine, daughter Sarita advised that the patient has no suicidal ideation Acute Toxic encephalopathy resolving Community-acquired pneumonia azithromycin Acute hypoxic respiratory failure Acute COPD exacerbation: Albuterol Atrovent Solu-Medrol Hypertension Dementia Arthritis CT head negative Chest x-ray negative Patient is hospice revoked Time spent 55 mts Plan discussed with: Patient Date of Service: December 22, 2024 Billing Provider: DOMINIQUE BANEGAS MD Common Visit Codes: [id number] INP/OBS CARE(HIGH) DOMINIQUE BANEGAS MD December 22, 2024 09:39
--- NOTE | 2024-12-22 09:44 | DVHDS2 ---
Discharge Summary Date of Admission December 19, 2024 at 16:10 Date of Discharge: December 22, 2024 Admitting Diagnosis Altered mental status Wounds: None Labs/Diagnostic Data: Laboratory Results Test 12/20/24 06:56 12/20/24 04:56 12/19/24 11:20 12/19/24 10:50 White Blood Count 6.9 10^3/uL (4.4-10.8) Red Blood Count 4.71 10^6/uL (4.0-5.20) Hemoglobin 14.7 g/dL (12.2-16.2) Hematocrit 43.6 % (36.0-46.0) Mean Corpuscular Volume 92.6 fL (80.0-100.0) Mean Corpuscular Hemoglobin 31.2 pg (28.0-32.0) Mean Corpuscular Hemoglobin Concent 33.7 g/dL (32.0-36.0) Red Cell Distribution Width 15.5 % (11.8-14.3) Platelet Count 284 10^3/uL (140-450) Mean Platelet Volume 7.8 fL (6.9-10.8) Neutrophils (%) (Auto) 84.1 % (37.0-80.0) Lymphocytes (%) (Auto) 13.9 % (10.0-50.0) Monocytes (%) (Auto) 1.9 % (0.0-12.0) Eosinophils (%) (Auto) 0.0 % (0.0-7.0) Basophils (%) (Auto) 0.1 % (0.0-2.0) Neutrophils # (Auto) 5.8 10 ^3/uL (1.6-8.6) Lymphocytes # (Auto) 1.0 10 ^3/uL (0.4-5.4) Monocytes # (Auto) 0.1 10 ^3/uL (0-1.3) Eosinophils # (Auto) 0 10 ^3/uL (0-0.8) Basophils # (Auto) 0 10 ^3/uL (0-0.2) Nucleated Red Blood Cells 0.0 % Sodium Level 140 mmol/L (136-145) Potassium Level 4.0 mmol/L (3.5-5.1) Chloride Level 108 mmol/L (98-107) Carbon Dioxide Level 26 mmol/L (20-31) Anion Gap 6 (5-15) Blood Urea Nitrogen 18 mg/dL (9-23) Creatinine 0.66 mg/dL (0.550-1.02) Glomerular Filtration Rate Calc 88 mL/min (>90) BUN/Creatinine Ratio 27.3 (10.0-20.0) Serum Glucose 124 mg/dL (74-106) Calcium Level 9.4 mg/dL (8.7-10.4) Total Bilirubin < 0.2 mg/dL (0.2-1.0) Aspartate Amino Transferase (AST) 12 U/L (13-40) Alanine Aminotransferase (ALT) 16 U/L (7-40) Alkaline Phosphatase 90 U/L (46-116) Total Protein 7.0 g/dL (5.7-8.2) Albumin 4.1 g/dL (3.2-4.8) Troponin I High Sensitivity 3 ng/L (</=34) Plasma/Serum Blood Alcohol < 3.0 mg/dL (<10) Urine Color Yellow (Yellow) Urine Clarity Clear (Clear) Urine pH 5.5 (5.0-9.0) Urine Specific [place] 1.033 (1.001-1.035) Urine Protein Trace (Negative) Urine Ketones Negative (Negative) Urine Blood Negative /uL (Negative) Urine Nitrite Negative (Negative) Urine Bilirubin Negative (Negative) Urine Urobilinogen 2 mg/dL (Negative) Urine Leukocyte Esterase Negative /uL (Negative) Urine RBC 3 /hpf (0 - 4) Urine Microscopic WBC 4 /HPF (0-5) Urine Squamous Epithelial Cells Few /hpf (<5) Urine Bacteria Few /hpf (None Seen) Urine Mucus Few (None Seen) Urine Glucose Normal mg/dL (Normal) Urine Opiates Screen Pos (NEGATIVE) Urine Fentanyl Screen Pos (NEGATIVE) Urine Barbiturates Screen Neg (NEGATIVE) Urine Phencyclidine Screen Neg (NEGATIVE) Urine Amphetamines Screen Neg (NEGATIVE) Urine Benzodiazepines Screen Pos (NEGATIVE) Urine Cocaine Screen Neg (NEGATIVE) Urine Cannabinoids Screen Neg (NEGATIVE) Test 12/19/24 10:26 Lactic Acid Level 0.6 mmol/L (0.4-2.0) Ammonia < 10 umol/L (11-32) B-Type Natriuretic Peptide 38.07 pg/mL (0-100) Other Laboratory Tests 12/20/24 06:56 12/20/24 04:56 Brief Hx & Hospital Course: 84-year-old female with a history of hypertension dementia arthritis COPD very hard of hearing burden by family for altered mental status. Patient accidentally of overdose on opiates fentanyl and benzodiazepine. Per patient's daughter Joie patient has had no intention of suicide. Patient was treated with a azithromycin for possible community-acquired pneumonia patient was given IV fluids and observed patient at the time of discharge is alert awake oriented x3 without any respiratory distress. CT head negative test x-ray negative being discharged home. She was on hospice prior to coming to the hospital and she will resume previous hospice. Consults/Reason for consult None Operations or Procedures CT head Condition at Discharge: Fair Final Diagnosis/Problems List Accidental Overdose on opiates fentanyl and benzodiazepine, daughter Sarita advised that the patient has no suicidal ideation Acute Toxic encephalopathy resolving Community-acquired pneumonia azithromycin Acute hypoxic respiratory failure Acute COPD exacerbation: Albuterol Atrovent Solu-Medrol Hypertension Dementia Arthritis CT head negative Chest x-ray negative Patient is hospice revoked Discharge Disposition: Hospice - Home Discharge Instruct/Medications Diet: Cardiac 2g Na,low cholest Activity: No Restrictions, As Tolerated Follow Up/Referral: Follow up with your primary Dr and hospice Dr Resume all previous home meds Medications: None 35 (Time taken for discharge summary 35 minutes) Discharge Statement: "Patient was advised to return to the ER or call 911 if any headaches, dizziness, shortness of breath, chest pain, abdominal pain, bleeding, fevers, or worsening of medical condition. Patient was counseled about treatment plan, medications, possible side effects, patient�verbalized understanding. All questions were answered to the best of my ability. This discharge took greater then 30 minutes in planning, reviewing documentation, counseling the patient, and discussing with other team members." ASSESSMENT ASSESSMENT Hospital Course Improved Assessment Accidental Overdose on opiates fentanyl and benzodiazepine, daughter Sarita advised that the patient has no suicidal ideation Acute Toxic encephalopathy resolving Community-acquired pneumonia azithromycin Acute hypoxic respiratory failure Acute COPD exacerbation: Albuterol Atrovent Solu-Medrol Hypertension Dementia Arthritis CT head negative Chest x-ray negative Patient is hospice revoked Date of Service: December 22, 2024 Billing Provider: DOMINIQUE BANEGAS MD Common Visit Codes: [id number] DISCH DAY >30min DOMINIQUE BANEGAS MD December 22, 2024 09:44
== END 2024-12-22 17:07 | disposition hospice, home (50) | DRG 917 ==
LOC: EDBD 10:02 → ER 10:02 → OVERFLOW 16:10 → TELE-WESTW 22:55 → TELE-CENTR 12-20 19:30
PROVIDERS: ADMIT Family Medicine; ATTEND Family Medicine
DX: T40.411A Poisoning by fentanyl or fentanyl analogs, accidental (unintentional), initial encounter (principal); G92.8 Other toxic encephalopathy; J96.01 Acute respiratory failure with hypoxia; J15.69 Pneumonia due to other Gram-negative bacteria; J15.9 Unspecified bacterial pneumonia; J44.1 Chronic obstructive pulmonary disease with (acute) exacerbation; J44.0 Chronic obstructive pulmonary disease with (acute) lower respiratory infection; Z51.5 Encounter for palliative care; T40.601A Poisoning by unspecified narcotics, accidental (unintentional), initial encounter; T42.4X1A Poisoning by benzodiazepines, accidental (unintentional), initial encounter; F03.90 Unspecified dementia, unspecified severity, without behavioral disturbance, psychotic disturbance, mood disturbance, and anxiety; I10 Essential (primary) hypertension; M19.09 Primary osteoarthritis, other specified site; Z79.899 Other long term (current) drug therapy; Y92.89 Other specified places as the place of occurrence of the external cause
CPT/HCPCS: 36415; 70450; 71045; 80053; 80307; 80320; 81001; 82140; 83605; 83880; 84484; 85025; 87040; 93005; 94640; 96365; 96375; 99291; G0378; J3490